=== PATIENT | male | born 1965 | race Native Hawaiian/Other Pacific Islander ===

== ENCOUNTER 2019-02-27 14:08 | Observation (INO) | payer OTHER ==
[~2019-02-27] VITALS: Ht 167.6 cm; Wt 90.3 kg
[2019-02-27] VITALS (9 sets, daily range): BP systolic 117–154; BP diastolic 72–94; TEMP 97.9–98.6; Ht 167.6 cm; Wt 90.3 kg
[2019-02-27 15:00] LABS: PLATELET COUNT 230 K/uL (142-355)
[2019-02-27] MEDS ORDERED: COZAAR25 MG PO (15:04)
[2019-02-27] MEDS ORDERED: TAMSULOSIN HYD0.4 MG PO (15:04)
[2019-02-27] MEDS ORDERED: ASA LOW DOSE81 MG PO (15:04)
[2019-02-27] MEDS ORDERED: ALLERGY RELF10 M2 PO (15:05)
[2019-02-27] MEDS ORDERED: METO25TA2 PO (15:05)
[2019-02-27 15:13] LABS: POTASSIUM 3.6 mmol/L (3.6-5.2); SODIUM 142 mmol/L (136-145)
[2019-02-27] MEDS ORDERED: DUPIXENT300 MG/2 M SC (16:28)
[2019-02-27 16:31] LABS: PARTIAL THROMBOPLASTIN TIME 32.4 SECONDS (24.5-33.6)
[2019-02-27] MEDS ORDERED: CLARITIN10 MG PO (17:02)
[2019-02-27] MEDS ORDERED: LOVASTATIN20 MG PO (17:44)
[2019-02-28] VITALS: BP 104/55; BP 130/78; TEMP 97.9
[2019-02-28 04:00] VITALS: BP 100/59; TEMP 97.7
[2019-02-28 08:00] VITALS: BP 114/70; TEMP 97.8
[2019-02-28 12:00] VITALS: BP 136/76; TEMP 97.4
[2019-02-28 16:00] VITALS: BP 126/69; TEMP 98.3
[2019-02-28 20:00] VITALS: BP 132/82; TEMP 98.3
[2019-03-01] VITALS: BP 130/78; TEMP 97.9
[2019-03-01 04:00] VITALS: BP 117/76; TEMP 98.3
[2019-03-01 08:00] VITALS: BP 123/74; TEMP 97.7
[2019-03-01 16:00] VITALS: BP 125/78; TEMP 97.9
[2019-03-01 20:00] VITALS: BP 128/79; TEMP 97.6
[2019-03-01 23:54] VITALS: BP 118/73; TEMP 97.9
[2019-03-02 03:54] VITALS: BP 108/65; TEMP 97.8
[2019-03-02 08:00] VITALS: BP 118/77; TEMP 97.7
[2019-03-02 12:00] VITALS: BP 155/82; TEMP 97.6
== END 2019-03-02 13:55 ==
LOC: ED 14:08 → MED/SURG 15:30
PROVIDERS: Hospitalist; ADMIT Internal Medicine
DX: R07.89 Other chest pain (principal); I10 Essential (primary) hypertension; E78.49 Other hyperlipidemia; N40.0 Benign prostatic hyperplasia without lower urinary tract symptoms; J30.89 Other allergic rhinitis; R00.0 Tachycardia, unspecified
CPT/HCPCS: 36415; 80053; 80061; 82533; 82550; 83880; 84443; 84484; 85027; 85379; 85610; 85730; 93005; 96372; 96374; 99220; 99284; A9500; G0378; J1650; J2405

== ENCOUNTER 2019-05-30 07:34 | Day surgery (SDC) | payer OTHER ==
[~2019-05-30] VITALS: Ht 33 cm; Wt 0.5 kg
[~2019-05-30 07:34] MED LIST: ALLERGY RELF10 M2 PO; ASA LOW DOSE81 MG PO; CLARITIN10 MG PO; COZAAR25 MG PO; DUPIXENT300 MG/2 M SC; LOVASTATIN20 MG PO; METO25TA2 PO; TAMSULOSIN HYD0.4 MG PO
[2019-05-30 08:11] LABS: POTASSIUM 3.7 mmol/L (3.6-5.2)
[2019-05-30 08:29] LABS: PLATELET COUNT 220 K/uL (142-355)
== END 2019-05-30 11:20 | disposition home or self-care (01) ==
LOC: OR 07:34
PROVIDERS: Student in an Organized Health Care Education/Training Program
PROC: 0DB48ZZ Excision of Esophagogastric Junction, Via Natural or Artificial Opening Endoscopic (ICD-10-PCS; principal; 2019-05-30)
PROC: 0DB68ZZ Excision of Stomach, Via Natural or Artificial Opening Endoscopic (ICD-10-PCS; 2019-05-30)
PROC: 0DBM8ZZ Excision of Descending Colon, Via Natural or Artificial Opening Endoscopic (ICD-10-PCS; 2019-05-30)
PROC: 0DBL8ZZ Excision of Transverse Colon, Via Natural or Artificial Opening Endoscopic (ICD-10-PCS; 2019-05-30)
PROC: 0DBN8ZZ Excision of Sigmoid Colon, Via Natural or Artificial Opening Endoscopic (ICD-10-PCS; 2019-05-30)
DX: K63.5 Polyp of colon (principal); D12.4 Benign neoplasm of descending colon; D12.3 Benign neoplasm of transverse colon; K29.50 Unspecified chronic gastritis without bleeding; B96.81 Helicobacter pylori [H. pylori] as the cause of diseases classified elsewhere; R10.84 Generalized abdominal pain; K21.9 Gastro-esophageal reflux disease without esophagitis; K44.9 Diaphragmatic hernia without obstruction or gangrene; K64.8 Other hemorrhoids; Z12.11 Encounter for screening for malignant neoplasm of colon
CPT/HCPCS: 80053; 85027; 93005; J2001; J2250; J2405; J2704

== ENCOUNTER 2019-07-24 14:25 | Outpatient (CLI) | payer OTHER | END 2019-07-24 19:02 | disposition home or self-care (01) | LOC: RAD 14:25 | DX: M79.674 Pain in right toe(s) (principal) ==

== ENCOUNTER 2019-12-07 18:00 | Outpatient (CLI) | payer OTHER ==
[2019-12-07 18:26] LABS: PLATELET COUNT 216 K/uL (142-355)
[2019-12-07 18:41] LABS: POTASSIUM 4.4 mmol/L (3.6-5.2)
[2019-12-07 18:54] LABS: PARTIAL THROMBOPLASTIN TIME 24.7 SECONDS (24.5-33.6)
== END 2019-12-07 21:48 | disposition home or self-care (01) ==
LOC: LABW 18:00
PROVIDERS: Orthopaedic Surgery Foot and Ankle Surgery
DX: M20.21 Hallux rigidus, right foot (principal)
CPT/HCPCS: 36415; 80048; 85027; 85610; 85730; 93005

== ENCOUNTER 2020-02-15 09:32 | Outpatient (CLI) | payer OTHER | END 2020-02-15 22:00 | disposition home or self-care (01) | LOC: LAB 09:32 | DX: Z11.59 Encounter for screening for other viral diseases (principal); J01.90 Acute sinusitis, unspecified | CPT/HCPCS: 87635; G2023; U0003 ==

== ENCOUNTER 2020-08-22 15:36 | Outpatient (CLI) | payer OTHER | END 2020-08-22 21:16 | disposition home or self-care (01) | LOC: INF 15:36 | PROVIDERS: ATTEND Internal Medicine | DX: Z23 Encounter for immunization (principal) | CPT/HCPCS: 96372 ==

== ENCOUNTER 2020-09-18 15:20 | Outpatient (CLI) | payer OTHER | END 2020-09-18 21:36 | disposition home or self-care (01) | LOC: INF 15:20 | PROVIDERS: ATTEND Internal Medicine | DX: Z23 Encounter for immunization (principal) | CPT/HCPCS: 96372 ==

== ENCOUNTER 2021-03-21 13:55 | Outpatient (CLI) | payer OTHER | END 2021-03-21 18:00 | disposition home or self-care (01) | LOC: MRI 13:55 | PROVIDERS: ATTEND Orthopaedic Surgery | DX: M25.511 Pain in right shoulder (principal); M75.121 Complete rotator cuff tear or rupture of right shoulder, not specified as traumatic; M75.41 Impingement syndrome of right shoulder; M75.21 Bicipital tendinitis, right shoulder ==

== ENCOUNTER 2021-04-24 16:00 | Outpatient (CLI) | payer OTHER | END 2021-04-24 19:00 | disposition home or self-care (01) | LOC: INF 16:00 | PROVIDERS: ATTEND Internal Medicine | DX: Z23 Encounter for immunization (principal) | CPT/HCPCS: 0004A ==

== ENCOUNTER 2021-09-24 10:16 | Outpatient (CLI) | payer OTHER ==
[2021-09-24 10:27] LABS: PLATELET COUNT 190 K/uL (142-355)
[2021-09-24 10:28] LABS: POTASSIUM 3.6 mmol/L (3.6-5.2)
== END 2021-09-24 19:10 | disposition home or self-care (01) ==
LOC: LAB 10:16
PROVIDERS: ATTEND Internal Medicine
DX: I20.0 Unstable angina (principal); I10 Essential (primary) hypertension
CPT/HCPCS: 80053; 80061; 82550; 84484; 85027; 85379

== ENCOUNTER 2021-09-24 10:24 | Outpatient (CLI) | payer OTHER | END 2021-09-24 19:10 | disposition home or self-care (01) | LOC: CT 10:24 → RAD 10:24 | PROVIDERS: ATTEND Internal Medicine | DX: J40 Bronchitis, not specified as acute or chronic (principal); R78.89 Finding of other specified substances, not normally found in blood | CPT/HCPCS: Q9963 ==

== ENCOUNTER 2022-01-22 09:28 | Outpatient (CLI) | payer OTHER | END 2022-01-22 18:53 | disposition home or self-care (01) | LOC: CT 09:28 | PROVIDERS: ATTEND Internal Medicine | DX: I26.99 Other pulmonary embolism without acute cor pulmonale (principal) | CPT/HCPCS: 36415; 82565; 84520; Q9963 ==

== ENCOUNTER 2022-02-20 14:26 | Outpatient (CLI) | payer OTHER | END 2022-02-20 19:35 | disposition home or self-care (01) | LOC: RAD 14:26 | PROVIDERS: ATTEND Internal Medicine | DX: R05.1 Acute cough (principal) ==

== ENCOUNTER 2022-04-14 10:15 | Outpatient (CLI) | payer OTHER | END 2022-04-14 18:57 | disposition home or self-care (01) | LOC: US 10:15 | PROVIDERS: ATTEND Internal Medicine | DX: M79.605 Pain in left leg (principal) ==

== ENCOUNTER 2022-07-02 15:17 | Outpatient (CLI) | payer OTHER | END 2022-07-02 19:36 | disposition home or self-care (01) | LOC: LABW 15:17 | PROVIDERS: ATTEND Internal Medicine | DX: I26.99 Other pulmonary embolism without acute cor pulmonale (principal) | CPT/HCPCS: 36415; 81241; 85300; 85302; 85305; 85379 ==

== ENCOUNTER 2022-08-24 12:46 | Emergency (ER) | payer OTHER ==
[~2022-08-24] VITALS: Ht 165.1 cm; Wt 90.7 kg
[2022-08-24 13:47] LABS: PLATELET COUNT 224 K/uL (142-355)
[2022-08-24 14:02] LABS: PARTIAL THROMBOPLASTIN TIME 26.1 SECONDS (24.5-33.6)
[2022-08-24 14:03] LABS: POTASSIUM 3.8 mmol/L (3.6-5.2)
[2022-08-24 15:10] VITALS: BP 130/72
== END 2022-08-24 15:10 | disposition home or self-care (01) ==
LOC: ED 12:46
PROVIDERS: Family Medicine
DX: R05.8 Other specified cough (principal); J30.89 Other allergic rhinitis; R53.83 Other fatigue
CPT/HCPCS: 80053; 82550; 83880; 84484; 85027; 85379; 85610; 85730; 93005; 99284

== ENCOUNTER 2022-11-19 09:26 | Day surgery (SDC) | payer OTHER | END 2022-11-19 12:30 | disposition home or self-care (01) | LOC: OR 09:26 | PROVIDERS: ATTEND Internal Medicine Gastroenterology | PROC: 0DB78ZX Excision of Stomach, Pylorus, Via Natural or Artificial Opening Endoscopic, Diagnostic (ICD-10-PCS; principal; 2022-11-19) | DX: K21.00 Gastro-esophageal reflux disease with esophagitis, without bleeding (principal); K44.9 Diaphragmatic hernia without obstruction or gangrene; K29.70 Gastritis, unspecified, without bleeding | CPT/HCPCS: J2001; J2704; J7120 ==

== ENCOUNTER 2022-12-10 09:56 | Day surgery (SDC) | payer OTHER ==
[~2022-12-10] VITALS: Ht 152.4 cm; Wt 56.7 kg
== END 2022-12-10 12:35 | disposition home or self-care (01) ==
LOC: OR 09:56
PROVIDERS: ATTEND Internal Medicine Gastroenterology
PROC: 0DBL8ZX Excision of Transverse Colon, Via Natural or Artificial Opening Endoscopic, Diagnostic (ICD-10-PCS; principal; 2022-12-10)
DX: Z12.11 Encounter for screening for malignant neoplasm of colon (principal); Z86.010 Personal history of colon polyps; D12.3 Benign neoplasm of transverse colon; K64.0 First degree hemorrhoids
CPT/HCPCS: J2704; J7120

== ENCOUNTER 2023-03-31 13:47 | Outpatient (CLI) | payer OTHER ==
[2023-03-31 15:10] LABS: POTASSIUM 4.3 mmol/L (3.6-5.2)
[2023-03-31 15:29] LABS: PLATELET COUNT 207 K/uL (142-355)
== END 2023-03-31 18:57 | disposition home or self-care (01) ==
LOC: LAB 13:47
PROVIDERS: ATTEND Internal Medicine
DX: I10 Essential (primary) hypertension (principal); N40.0 Benign prostatic hyperplasia without lower urinary tract symptoms
CPT/HCPCS: 80053; 80061; 81002; 84154; 84439; 84443; 85027

== ENCOUNTER 2023-07-22 15:43 | Emergency (ER) | payer OTHER ==
[~2023-07-22] VITALS: Ht 170.2 cm; Wt 92.1 kg
[2023-07-22 15:45] VITALS: TEMP 98.2
[2023-07-22 16:05] LABS: PLATELET COUNT 226 K/uL (142-355)
[2023-07-22 16:22] LABS: SODIUM 140 mmol/L (136-145)
[2023-07-22 18:00] VITALS: BP 121/78
== END 2023-07-22 18:02 | disposition left against medical advice (07) ==
LOC: ED 15:43
PROVIDERS: Family Medicine
DX: R07.89 Other chest pain (principal); R06.02 Shortness of breath; I10 Essential (primary) hypertension; Z53.29 Procedure and treatment not carried out because of patient's decision for other reasons
CPT/HCPCS: 36415; 80053; 84484; 85027; 93005; 99284; Q9963